=== PATIENT | female | born 2000 | race Caucasian/White ===

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

== ENCOUNTER 2021-01-03 13:52 | Emergency (ER) | payer OTHER ==
[~2021-01-03] VITALS: Ht 162.6 cm; Wt 56.7 kg
[2021-01-03] MEDS ORDERED: AMOXICILLIN 50500 MG PO (15:04)
[2021-01-03] MEDS ORDERED: IBUPROFEN 600600 M1 PO (15:04)
[2021-01-03 15:09] VITALS: BP 132/65
== END 2021-01-03 15:10 | disposition home or self-care (01) ==
LOC: M.ERS 13:52
DX: J02.9 Acute pharyngitis, unspecified (principal); Z20.822 Contact with and (suspected) exposure to COVID-19

== ENCOUNTER 2021-04-04 00:52 | Emergency (ER) | payer OTHER ==
[~2021-04-04] VITALS: Ht 162.6 cm; Wt 59.0 kg
[~2021-04-04 00:52] MED LIST changes: +AMOXICILLIN 50500 MG PO; +IBUPROFEN 600600 M1 PO
[2021-04-04 01:40] LABS: URINE BILIRUBIN NEGATIVE (Negative); URINE BLOOD NEGATIVE (Negative); URINE CLARITY CLEAR; URINE COLOR YELLOW; URINE GLUCOSE-RANDOM NEGATIVE (Negative); URINE KETONES NEGATIVE (Negative); URINE LEUKOCYTES-REFLEX NEGATIVE (Negative); URINE NITRITE-REFLEX NEGATIVE (Negative); URINE PROTEIN NEGATIVE (Negative); URINE SPECIFIC GRAVITY 1.025 (1.005-1.030); URINE UROBILINOGEN 0.2 E.U./dl (0.2-1.0)
[2021-04-04 01:50] LABS: AMP/METHAMP Negative (Negative); BARBITURATES Negative (Negative); BENZODIAZEPINES Negative (Negative); COCAINE Negative (Negative); METHADONE Negative (Negative); OPIATES Negative (Negative); PCP Negative (Negative); THC Negative (Negative)
[2021-04-04 02:08] LABS: ABSOLUTE EOSINOPHILS 0.2 thou/uL (0.0-0.7); ABSOLUTE LYMPHOCYTES 2.2 thou/uL (0.8-5.3); ABSOLUTE MONOCYTES 0.5 thou/uL (0.0-1.2); ABSOLUTE NEUTROPHILS 4.5 thou/uL (1.6-8.1); BASOPHILS 0.5 %; EOSINOPHILS 2.6 %; HEMATOCRIT 36.6 % (37.0-47.0); HEMOGLOBIN 12.4 gm/dL (12.0-15.0); LYMPHOCYTES 29.2 %; MCH 29.5 pg (26.0-34.0); MCHC 33.9 g/dL (28.0-37.0); MCV 87.2 fL (80.0-100.0); MONOCYTES 7.1 %; MPV 7.9 fl. (7.2-11.1); NUCLEATED RBCS 0 /100WBC; PLATELET COUNT* 220 thou/uL (150-400); POLYS 60.6 %; RBC 4.19 mil/uL (4.20-5.00); RDW-CV 13.4 % (10.5-14.5); WBC 7.4 thou/uL (4.0-11.0)
[2021-04-04 02:09] LABS: CALCIUM 8.4 mg/dL (8.5-10.1); CREATININE 0.9 mg/dL (0.6-1.3); POTASSIUM 3.7 mmol/L (3.5-5.1)
[2021-04-04 02:13] LABS: ALBUMIN 4.2 g/dL (3.4-5.0); TOTAL BILIRUBIN 0.2 mg/dL (<0.1-1.0); TOTAL PROTEIN 7.2 g/dL (6.4-8.2)
[2021-04-04] MEDS ORDERED: OMEPRAZOLE20 M1 PO (03:10)
[2021-04-04] MEDS ORDERED: DICYCLOMINE HCL20 MG PO (03:10)
[2021-04-04 03:36] VITALS: BP 110/65
== END 2021-04-04 03:38 | disposition home or self-care (01) ==
LOC: M.ERS 00:52
PROVIDERS: Personal Emergency Response Attendant
DX: R10.13 Epigastric pain (principal); R11.10 Vomiting, unspecified

== ENCOUNTER 2021-08-29 02:10 | Emergency (ER) | payer OTHER ==
[~2021-08-29] VITALS: Ht 162.6 cm; Wt 59.0 kg
[~2021-08-29 02:10] MED LIST changes: +DICYCLOMINE HCL20 MG PO; +OMEPRAZOLE20 M1 PO
[2021-08-29] MEDS ORDERED: APAP W/CODEINE1 TA2 PO (02:53)
[2021-08-29] MEDS ORDERED: AMOXICILLIN875 MG PO (02:53)
[2021-08-29 03:09] VITALS: BP 110/73
== END 2021-08-29 03:09 | disposition home or self-care (01) ==
LOC: M.ERS 02:10
DX: K08.89 Other specified disorders of teeth and supporting structures (principal)